=== PATIENT | male | born 1975 | race Caucasian/White ===

== ENCOUNTER 2017-12-30 22:09 | Emergency (ER) | payer SELFPAY ==
--- NOTE | 2017-12-30 22:47 | ER Document Report ---
ED General - General Mode of Arrival: Ambulatory Information source: Patient TRAVEL OUTSIDE OF THE [place] IN LAST 30 DAYS: No - HPI Onset: Other - 2 DAYS AGO Onset/Duration: Gradual, Constant Quality of pain: Achy, Dull Severity: Moderate Associated symptoms: Body/muscle aches, Nausea, Weakness, Other - DARK URINE. 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 (ULYSSES ARRIETA) - Related Data Allergies/Adverse Reactions: ketorolac tromethamine [From Toradol] Allergy (Verified 08/16/13 15:59) Past Medical History - General Information source: Patient - Social History Smoking Status: Current Every Day Smoker Cigarette use (# per day): Yes Chew tobacco use (# tins/day): No Frequency of alcohol use: None Drug Abuse: Marijuana Lives with: Family Family History: Reviewed & Not Pertinent Patient has suicidal ideation: No Patient has homicidal ideation: No - Past Medical History Cardiac Medical History: Reports: None Pulmonary Medical History: Reports: None EENT Medical History: Reports: None Neurological Medical History: Reports: None Endocrine Medical History: Reports: None Renal/ Medical History: Reports: None. Denies: Hx Peritoneal Dialysis Malignancy Medical History: Reports None GI Medical History: Reports: None Musculoskeltal Medical History: Reports None Psychiatric Medical History: Reports: None Past Surgical History: Reports: Hx Orthopedic Surgery - back surgery with instrumentation - Immunizations Immunizations up to date: Yes Hx Diphtheria, Pertussis, Tetanus Vaccination: Yes <ULYSSES ARRIETA - Last Filed: 12/30/17 23:37> Review of Systems - Review of Systems Constitutional: See HPI EENT: No symptoms reported Cardiovascular: No symptoms reported Respiratory: No symptoms reported Gastrointestinal: See HPI Genitourinary: See HPI Male Genitourinary: See HPI Musculoskeletal: See HPI Skin: No symptoms reported Neurological/Psychological: See HPI <ULYSSES ARRIETA - Last Filed: 12/30/17 23:37> Physical Exam - Vital signs Interpretation: Normal. No: Hypotensive, Tachycardic, Tachypneic, Febrile - General General appearance: Appears well, Alert In distress: None - HEENT Head: Normocephalic Eyes: Normal Conjunctiva: Normal Ears: Normal Nasal: Normal Mouth/Lips: Normal Mucous membranes: Dry - MILDLY - Respiratory Respiratory status: No respiratory distress Breath sounds: Normal - Cardiovascular Rhythm: Regular Heart sounds: Normal auscultation Murmur: No - Abdominal Inspection: Normal Distension: No distension Bowel sounds: Hypoactive - Back Back: Normal - Extremities General upper extremity: Normal inspection General lower extremity: Normal inspection. No: Tender, Edema - Neurological Neuro grossly intact: Yes Cognition: Normal Orientation: AAOx4 - Psychological Associated symptoms: Normal affect, Normal mood - Skin Skin Temperature: Warm Skin Moisture: Dry Skin Color: Normal Skin Turgor: Elastic <ULYSSES ARRIETA - Last Filed: 12/30/17 23:37> - Vital signs Vitals: Temp Pulse Resp BP Pulse Ox 98.0 F 78 18 110/73 98 12/30/17 22:20 12/30/17 22:20 12/30/17 22:20 12/30/17 22:20 12/30/17 22:20 Course - Laboratory Result Diagrams: 12/30/17 22:25 12/30/17 22:25 <ULYSSES ARRIETA - Last Filed: 12/30/17 23:37> - Laboratory Result Diagrams: 12/30/17 22:25 12/30/17 22:25 <ABIGAIL HAMPTON - Last Filed: 12/31/17 02:21> - Vital Signs Vital signs: Temp Pulse Resp BP Pulse Ox 98.0 F 78 18 110/73 98 12/30/17 22:20 12/30/17 22:20 12/30/17 22:20 12/30/17 22:20 12/30/17 22:20 - Laboratory Laboratory results interpreted by me: 12/30/17 12/30/17 12/30/17 22:25 22:25 22:25 RBC 4.28 L Chloride 97 L AST 65 H Urine Protein 30 H Urine Ketones TRACE H Urine Urobilinogen 2.0 H Urine Ascorbic Acid 40 H Discharge <ULYSSES ARRIETA - Last Filed: 12/30/17 23:37> <LIZZY HAMPTONALL - Last Filed: 12/31/17 02:21> - Discharge Clinical Impression: Flank pain, Dehydration Condition: Stable Disposition: HOME, SELF-CARE Instructions: Dehydration ([facility]), Flank Pain ([facility]) Additional Instructions: YOUR LAB TESTS WERE NORMAL EXCEPT FOR A LITTLE DEHYDRATION. THE CT SCAN DID NOT SHOW ANY NEW ABNORMALITIES TO EXPLAIN YOUR PAIN. AVOID EXPOSURE TO EXTREME HEAT FOR NEXT 24 HOURS. DRINK PLENTY OF FLUIDS. 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 FOLLOW UP WITH YOUR PRIMARY CARE PROVIDER OR RETURN TO E.R. IF PROBLEMS. Forms: Return to Work Referrals: SHARMAINE FORDE MD [NO LOCAL MD] - Follow up as needed
[2017-12-30 22:51] LABS: ABSOLUTE LYMPHOCYTES (AUTO) 1.8 10^3/uL (0.5-4.7); ABSOLUTE MONOCYTES (AUTO) 0.7 10^3/uL (0.1-1.4); ABSOLUTE NEUT (AUTO) 3.1 10^3/uL (1.7-8.2); BASOPHILS % (AUTO) 0.7 % (0-2); EOSINOPHILS % (AUTO) 0.4 % (0-6); HEMOGLOBIN 13.6 g/dL (13.5-17.0); LYMPHOCYTES % (AUTO) 31.8 % (13-45); MEAN CORPUSCULAR HEMOGLOBIN 31.7 pg (27.0-33.4); MEAN CORPUSCULAR HGB CONC 34.8 g/dL (32.0-36.0); MEAN CORPUSCULAR VOLUME 91 fl (80-97); MONOCYTES % (AUTO) 12.8 % (3-13); PLATELET COUNT 240 10^3/uL (150-450); RED BLOOD COUNT 4.28 10^6/uL (4.35-5.55); RED CELL DISTRIBUTION WIDTH 13.3 % (11.5-14.0); SEGMENTED NEUTROPHILS % (AUTO) 54.3 % (42-78); TOTAL CELLS COUNTED % (AUTO) 100 %; WHITE BLOOD COUNT 5.8 10^3/uL (4.0-10.5)
[2017-12-30] MEDS ORDERED: NORMAL SALINE 1000 ML 2,000 ML IV PRN (22:56)
[2017-12-30 22:58] LABS: APPEARANCE,URINE CLEAR; BILIRUBIN,URINE NEGATIVE (NEGATIVE); GLUCOSE, URINE NEGATIVE (NEGATIVE); KETONES,URINE TRACE mg/dL (NEGATIVE); LEUKOCYTE ESTERASE,URINE NEGATIVE (NEGATIVE); NITRITE,URINE NEGATIVE (NEGATIVE); PROTEIN,URINE 30 mg/dL (NEGATIVE); URINE SPECIFIC GRAVITY 1.033
[2017-12-30 22:59] LABS: COLOR,URINE YELLOW
[2017-12-30 23:12] LABS: ALANINE AMINOTRANSFERASE 68 U/L (21-72); ALBUMIN 4.5 g/dL (3.5-5.0); ALKALINE PHOSPHATASE 60 U/L (38-126); ANION GAP 13 (5-19); ASPARTATE AMINO TRANSFERASE 65 U/L (17-59); BILIRUBIN,DIRECT 0.3 mg/dL (0.0-0.4); BILIRUBIN,TOTAL 0.4 mg/dL (0.2-1.3); BLOOD UREA NITROGEN 13 mg/dL (7-20); CALCIUM 9.3 mg/dL (8.4-10.2); CARBON DIOXIDE 29 mmol/L (22-30); CHLORIDE 97 mmol/L (98-107); GLUCOSE 105 mg/dL (75-110); LIPASE 164.1 U/L (23-300); SODIUM 139.2 mmol/L (137-145); TOTAL PROTEIN 7.9 g/dL (6.3-8.2)
[2017-12-31] MEDS ORDERED: ONDANSETRON 4 MG TAB.RAPDIS PO ONE (00:16)
[2017-12-31] MEDS ORDERED: HYDROMORPHONE HCL INJ/PF 2 MG/ML AMPULE IV ONE (00:16)
[2017-12-31 01:27] LABS: URINE AMPHETAMINES SCREEN NEGATIVE; URINE BARBITURATES SCREEN NEGATIVE; URINE BENZODIAZEPINES SCREEN NEGATIVE; URINE COCAINE SCREEN NEGATIVE; URINE MARIJUANA (THC) SCREEN UNCONFIRMED POSITIVE; URINE METHADONE SCREEN NEGATIVE; URINE PHENCYCLIDINE SCREEN NEGATIVE
--- NOTE | 2017-12-31 02:09 | RADIOLOGY REPORT (SQ) ---
EXAM DESCRIPTION: CT ABDOMEN WITHOUT IV CONTRAST COMPLETED DATE/TME: 12/31/2017 00:21 CLINICAL HISTORY: 42 years Male, FLANK PAIN, BILATERAL Comparison: None. Technique: No contrast. Coronal and sagittal reformat. This exam was performed according to our departmental dose-optimization program, which includes automated exposure control, adjustment of the mA and/or kV according to patient size and/or use of iterative reconstruction technique.[facility]: Dose Right [facility]: CareDose [facility]: Dose Right [facility]: Teradose 4D [facility]: [employer] LIMITATIONS: None Findings: Posterior L4-S1 hardware fusion, L5-S1 intervertebral disc replacement. Atherosclerosis. 0.6 cm degenerative L4-L5 anterolisthesis. Minimal T12 anterior vertebral wedging. Mild disc desiccation at the thoracolumbar junction. Unenhanced lower thorax, abdominopelvic structures, and musculoskeleton appear otherwise grossly unremarkable. Impression: No acute findings.
[2017-12-31 02:22] VITALS: BP 119/85
== END 2017-12-31 02:29 | disposition home or self-care (01) ==
LOC: ER 22:09
DX: R10.9 Unspecified abdominal pain (principal); E86.0 Dehydration; M79.1 Myalgia; R11.0 Nausea; R53.1 Weakness; F17.210 Nicotine dependence, cigarettes, uncomplicated
CPT/HCPCS: 99284; 96361; 96374; 36415; 82550; 83690; 85025; 80053; 81001; 80307; 76380; S0119; J1170; J7030

== ENCOUNTER 2020-05-24 13:18 | Emergency (ER) | payer SELFPAY ==
[2020-05-24 13:31] VITALS: BP 110/70
[2020-05-24] MEDS ORDERED: PENICILLIN V POTASSIUM 500 MG TABLET PO ONE (14:05)
[2020-05-24] MEDS ORDERED: LIDOCAINE 2% VISCOUS SOLN 15 ML UDCUP PO ONE (14:05)
--- NOTE | 2020-05-24 14:13 | ER Document Report ---
ED Oral Problem - General Chief Complaint: Toothache Stated Complaint: POSSIBLE MOUTH/TOOTH ABSCESS Time Seen by Provider: 05/24/20 14:00 Primary Care Provider: [facility] [Provider Group] - Follow up as needed Mode of Arrival: Ambulatory Information source: Patient Notes: 44-year-old male presented to ED for dental pain to the left upper jaw. He does have a couple cavities in this area. He does have some mild swelling to the gums. He states he did have the pain starting about 4 weeks ago. He has a dental appointment for next Wednesday. He states they told him to come in and get some antibiotics for the dental pain and to keep his appointment. He is alert oriented respirations regular nonlabored speaking in full sentences. He states he does smoke about a fourth of a pack does not drink alcohol does smoke marijuana. He states his medical history is rods and screws in his back from a fracture back. Constitutional: Negative for fever. HENT: Dental cavities with mild swelling to the left upper jaw Eyes: Negative for visual changes. Cardiovascular: Negative for chest pain. Respiratory: Negative for shortness of breath. Gastrointestinal: Negative for abdominal pain, vomiting or diarrhea. Genitourinary: Negative for dysuria. Musculoskeletal: Negative for back pain. Skin: Negative for rash. Neurological: Negative for headaches, weakness or numbness. 10 point ROS negative except as marked above and in HPI. PHYSICAL EXAMINATION: GENERAL: Well-appearing, well-nourished and in no acute distress. HEAD: Atraumatic, normocephalic. EYES: Pupils equal round extraocular movements intact, conjunctiva are normal. ENT: Dental cavity and tooth #15 and very small piece of the tooth of tooth #12 or 13 unable to tell the exact tooth due to no other teeth on that side of the mouth on the upper jaw. There is very minimal swelling and redness to this gums. NECK: Normal range of motion LUNGS: No respiratory distress Musculoskeletal: Normal range of motion NEUROLOGICAL: Normal speech, normal gait. PSYCH: Normal mood, normal affect. SKIN: Warm, Dry, normal turgor, no rashes or lesions noted. TRAVEL OUTSIDE OF THE [place] IN LAST 30 DAYS: No - HPI Patient complains to provider of: Jaw pain, Swelling of jaw - Minimal, Toothache Onset: Other - 4 weeks Onset: Gradual Quality of pain: Achy Severity: Moderate Pain Level: 2 Associated symptoms: Toothache Worsened by: Cold Relieved by: Nothing Similar symptoms previously: Yes Recently seen / treated by doctor/dentist: No - Related Data Allergies/Adverse Reactions: ketorolac tromethamine [From Toradol] Allergy (Verified 08/16/13 15:59) Past Medical History - General Information source: Patient - Social History Smoking Status: Current Every Day Smoker Cigarette use (# per day): Yes - 5 cigarettes a day Smoking Education Provided: Yes - 3 minutes Frequency of alcohol use: None Drug Abuse: Marijuana Family History: Reviewed & Not Pertinent Patient has suicidal ideation: No Patient has homicidal ideation: No - Past Medical History Cardiac Medical History: Reports: None Pulmonary Medical History: Reports: None EENT Medical History: Reports: None Neurological Medical History: Reports: None Endocrine Medical History: Reports: None Renal/ Medical History: Reports: None Malignancy Medical History: Reports None GI Medical History: Reports: None Musculoskeletal Medical History: Reports Hx Musculoskeletal Trauma Skin Medical History: Reports None Psychiatric Medical History: Reports: None Traumatic Medical History: Reports: Hx Spine Fracture Infectious Medical History: Reports: None Past Surgical History: Reports: Hx Orthopedic Surgery - back surgery with instrumentation - Immunizations Immunizations up to date: Yes Hx Diphtheria, Pertussis, Tetanus Vaccination: Yes Physical Exam - Vital signs Vitals: Temp Pulse Resp BP Pulse Ox 97.9 F 65 16 110/70 100 05/24/20 13:30 05/24/20 13:30 05/24/20 13:30 05/24/20 13:30 05/24/20 13:30 Course - Re-evaluation Re-evalutation: 05/24/20 14:18 Presentation is most consistent with likely an infected tooth. Airway is patent. Vitals within normal limits. Patient is able swallow without any difficulty. There is no significant facial swelling. No evidence of Tho angina, apical abscess, or airway obstruction. Patient will be started on antibiotics. I've instructed to follow-up with dentistry as earliest ability for definitive management. At this time will discharge with return precautions and follow-up recommendations. Verbal discharge instructions given a the beds mary and opportunity for questions given. Medication warnings reviewed. Patient is in agreement with this plan and has verbalized understanding of return precautions and the need for primary care follow-up in the next 24-72 hours. - Vital Signs Vital signs: Temp Pulse Resp BP Pulse Ox 97.9 F 65 16 110/70 100 05/24/20 13:30 05/24/20 13:30 05/24/20 13:30 05/24/20 13:30 05/24/20 13:30 Discharge - Discharge Clinical Impression: Pain due to dental caries Condition: Stable Disposition: HOME, SELF-CARE Additional Instructions: TOOTHACHE: Your pain is due to dental decay. The tooth must be repaired in order for you to feel better. You will, therefore, be referred to a dentist. We do not have dentists on the staff at [facility]. Severe swelling or drainage around a tooth usually means a dental abscess. This also requires evaluation and treatment by the dentist, but antibiotics may be prescribed while awaiting dental treatment. You should be rechecked immediately if you develop major swelling of the face, increasing pain, a lump in the jaw or gums, headache, difficulty swallowing, or fever. PENICILLIN V K: You have been given a prescription for Penicillin VK. Your physician has determined that this is the best antibiotic for your condition. Pen VK can be taken with meals, however more of the antibiotic gets into the bloodstream if it's taken on an empty stomach. Penicillin usually has no side effects. However, allergy to penicillins is common. If you have had an allergic reaction to any drug of the penicillin family, you should never take any other penicillin. Notify your doctor at once if you develop hives, itching, swelling, faintness, or shortness of breath. You have been given a syringe of viscous lidocaine. This is real lidocaine. You apply a small amount to your finger and rub that on the tooth and gums that are affected by pain. You can do this every 4 hours. Please do not do it any more often than every 4 hours as it can erode the skin on your gums and cause more pain. It is a good pain reliever used every 4 hours. Please do not smoke or suck on a straw as if both of these will cause air to go over the bare nerve which is what is causing a lot of your pain. FOLLOW-UP CARE: You have been referred for follow-up care to the dentists listed below. Call the dentists office for an appointment as you were instructed or within the next two days. If you experience worsening or a significant change in your symptoms, notify the physician immediately or return to the Emergency Department at any time for re-evaluation. [facility] [address] [place] [address] [facility] [address] [facility] [address] [facility] [place] [facility] [address] [email or web address] [address] [place] [address] Wednesday- 8:00am to 5:00 pm Will see patients from other [facility]. Charges based on income and family size and accepts Medicare, Medicaid, and Insurances Will pull molars [facility] [address] Hours of Operation 8:00 am - 4:30 pm weekdays The following dental offices accept Medicaid: [facility] Dr. [address]. [place] Dr. Cruz Dr. Mai Jordan Murphy L[place], and [facility] oral surgery Dr. Nino ([place]) Dr. Lynne ([place]) [facility] Drs. Gibbs and Benoit ([place]) Dr. Escobar ([place]) [facility] Dr. Barton ([place]) Drs. Thompson and ([place]) Medicaid Care Line Prescriptions: Penicillin V Potassium [Penicillin Vk 500 mg Tablet] 500 mg PO BID #20 tablet Referrals: [facility] [Provider Group] - Follow up as needed
== END 2020-05-24 14:26 | disposition home or self-care (01) ==
LOC: ER 13:18
DX: K02.9 Dental caries, unspecified (principal); F17.210 Nicotine dependence, cigarettes, uncomplicated
CPT/HCPCS: 99283; J3490